=== PATIENT | male | born 2000 | race Caucasian/White ===

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

== ENCOUNTER → 2022-04-18 | Outpatient (CLI) | payer BC, OTHER | LOC: ORTHO 12:55 | PROVIDERS: ATTEND Orthopaedic Surgery | DX: S43.004A Unspecified dislocation of right shoulder joint, initial encounter (principal); X58.XXXA Exposure to other specified factors, initial encounter | CPT/HCPCS: 99213 ==

== ENCOUNTER → 2022-04-30 | Outpatient (CLI) | payer BC, OTHER ==
[~2022-04-30] VITALS: Ht 180.3 cm; Wt 80.0 kg
[~2022-04-30] MED LIST: GADOTERATE 0.5 MMOL/ML (CLARISCAN) 15 ML VIAL IV ONE; IOHEXOL 240 MGI/ML 50 ML (OMNIPAQUE) VIAL IV ONE; LIDOCAINE 1% INJ 10 ML VIAL INJ ONE; LIDOCAINE 1% INJ 10 ML VIAL ONE
--- NOTE | 2022-04-30 15:47 | Diagnostic Imaging Report ---
INDICATION: Right shoulder pain. DETAILS OF THE PROCEDURE: The patient was brought to the fluoroscopy suite and placed on the table in the supine position. The right shoulder was prepped and draped in the usual sterile fashion. A small amount of 1% lidocaine was utilized for local anesthesia. A 22-gauge needle was advanced into the right shoulder and placed with its tip into the rotator interval. A 15 mL solution of iodinated contrast, normal saline, and gadolinium was injected under fluoroscopic observation. A total of 10 seconds of fluoroscopic time was utilized. The needle was withdrawn and hemostasis was obtained. The patient tolerated the procedure well and was sent to MRI in satisfactory condition. IMPRESSION: Successful right shoulder injection of gadolinium contrast solution using fluoroscopy. Dictated by: Dictated on workstation # [id number]
--- NOTE | 2022-04-30 21:12 | Diagnostic Imaging Report ---
MRI RT UPPER EXT JOINT WITH Technique: Multiplanar, multisequence MR imaging of the right shoulder was performed with intra-articular contrast. Comparison: None available. Indication: Right shoulder pain. Findings: Rotator cuff: The supraspinatus, infraspinous, teres minor and subscapularis are all intact. There is no rotator cuff muscle atrophy or edema. Glenoid labrum: There is a tear in the anterior inferior labrum which is very truncated. Portions of the torn labrum have slight medial displacement, but there is no disruption of the periosteal sleeve. Inferior glenohumeral ligaments are intact. Long head of biceps: Long head of biceps is normally positioned within the bicipital groove. The intracapsular segment is intact. Bones and cartilage: Small Hill-Sachs fracture in the humeral head has a width measuring 1.5 cm. A small moderate bone marrow edema is present. Multiple sites of full-thickness articular loss with displaced fragments of cartilage located in the inferior aspect of the glenohumeral joint. The largest fragment measures approximately 5 mm in size. The acromioclavicular joint is normal in alignment without significant degenerative change. Soft tissues: No MRI findings to suggest adhesive capsulitis. No fluid or inflammatory like signal within the subacromial/subdeltoid space to indicate bursitis. IMPRESSION: 1. Sequela of anterior shoulder dislocation includes small Hill-Sachs deformity in the posterior humeral head. 2. Tear of the anterior-inferior glenoid labrum with adjacent full-thickness articular cartilage defects in the inferior glenoid. 3. Multiple of the chondral fragments are displaced in the inferior aspect of the joint. 4. No rotator cuff tear. Dictated by: Dictated on workstation # [id number]
== END ==
LOC: RAD 14:05
PROVIDERS: ATTEND Orthopaedic Surgery
DX: S43.431A Superior glenoid labrum lesion of right shoulder, initial encounter (principal); M21.821 Other specified acquired deformities of right upper arm; X58.XXXA Exposure to other specified factors, initial encounter
CPT/HCPCS: 23350; 73040; 73222